=== PATIENT | female | born 1950 ===

== ENCOUNTER 2018-04-10 07:10 | Day surgery (SDC) | payer MEDICARE ==
[2018-04-10] MEDS ORDERED: Propofol 10 mg/ml Inj (20 ML) ONE (10:12)
[2018-04-10] MEDS ORDERED: Labetalol 25mg/5ml Syringe ONE (10:43)
[2018-04-10] MEDS ORDERED: Lidocaine Hydrochloride 5 ML INJ ONE (10:43)
[2018-04-10 11:25] VITALS: TEMP 97.1; O2SAT 99
[2018-04-10 11:48] VITALS: BP 155/80; PULSE 76; RESP 11
== END 2018-04-10 12:22 | disposition home or self-care (01) ==
LOC: C.ENDO 07:10
PROVIDERS: ATTEND Internal Medicine Gastroenterology
DX: K63.5 Polyp of colon (principal); K64.8 Other hemorrhoids
CPT/HCPCS: 45380; 82948; 88305; 88342; J2704